=== PATIENT | male | born 1945 | race Caucasian/White ===

== ENCOUNTER 2017-08-26 20:33 | Inpatient (IN) | payer OTHER ==
[~2017-08-26] VITALS: Ht 167.6 cm; Wt 95.5 kg
[~2017-08-26 20:33] MED LIST: ASPIRIN325 MG PO; BYSTOLIC5 MG PO; CRESTOR10 MG PO; HYDROCODON-ACE1 EAC7 PO; LEVAQUIN500 MG PO; LEVAQUIN750 MG PO; METFORMIN HCL500 M1 PO; METFORMIN HCL500 MG PO; PREDNISONE20 MG PO; REGLAN10 MG PO; ST. JOSEPH ASPI81 MG PO; TRILIPIX135 MG PO; VENTOLIN HFA18 GM IH; ZITHROMAX Z-PA250 MG PO
[2017-08-26 21:04] LABS: HEMATOCRIT 43.2 % (38.0-50.0); HEMOGLOBIN 14.6 G/DL (12.5-16.6); MCH 33.6 PG (29.0-34.0); MCHC 33.8 G/DL (30.0-36.0); MCV 99.3 FL (86-99); PLATELET COUNT 179 K/uL (156-360); RBC DIS.WIDTH-SD 44.1 % (39-53); RED BLOOD COUNT 4.35 M/uL (4.00-5.50); WHITE BLOOD COUNT 6.1 K/uL (4.1-10.2)
[2017-08-26 21:14] LABS: ALBUMIN 4.3 g/dL (3.2-4.8); CHLORIDE 96 mEq/L (99-109); POTASSIUM 4.2 mEq/L (3.7-5.4); SODIUM 134 mEq/L (136-147)
[2017-08-26 21:17] LABS: GLUCOSE 153 mg/dL (70-99); TOTAL PROTEIN 7.2 g/dL (6.4-8.3)
[2017-08-26 21:19] LABS: TOTAL BILIRUBIN 1.3 mg/dL (0.0-1.0)
[2017-08-26 21:20] LABS: ALKALINE PHOSPHATASE 73 IU/L (3-129); CREATININE 1.1 mg/dL (0.6-1.3); GFR ESTIMATE (CALCULATED) > 59 mL/min/ (58.99-99999)
[2017-08-26 21:21] LABS: UREA NITROGEN (BUN) 14 mg/dL (9-23)
[2017-08-26 21:22] LABS: AST (GOT) 70 IU/L (2-34)
[2017-08-26 21:23] LABS: ALT (GPT) 48 IU/L (3-49)
[2017-08-26 22:49] LABS: LIPASE 54 U/L (1.0-51.0)
[2017-08-26 22:54] LABS: TROP-I INTERPRETATION NEGATIVE; TROPONIN-I < 0.01 ng/mL (0.0-0.30)
[2017-08-27] VITALS (7 sets, daily range): BP systolic 131–164; BP diastolic 60–72
[2017-08-27 02:03] LABS: APPEARANCE SL.HAZY ((CLEAR)); BILIRUBIN NEGATIVE; BLOOD NEGATIVE; COLOR AMBER ((YELLOW)); GLUCOSE (STRIP) >=500; KETONES 20; LEUKOCYTES NEGATIVE; NITRITE NEGATIVE; PROTEIN (STRIP) NEGATIVE; SPECIFIC GRAVITY 1.026 (1.000-1.030)
[2017-08-27 02:06] LABS: BACTERIA RARE /HPF; EPITHELIAL CELLS RARE /HPF; MUCUS TRACE /LPF; RED BLOOD CELLS 0-5 /HPF (0-5); UCUL ADDED? NO; WHITE BLOOD CELLS 0-5 /HPF (0-5)
[2017-08-27 06:13] LABS: BASOPHIL (%) 0.3 % (0-1); EOSINOPHIL (%) 0.3 % (0-5); HEMATOCRIT 42.7 % (38.0-50.0); IMMATURE GRANULOCYTE (%) 0.3 % (0.0-0.7); LYMPHOCYTE (%) 15.8 % (15-42); LYMPHOCYTE COUNT 1.3 K/uL (1.0-2.8); MCH 32.9 PG (29.0-34.0); MCHC 32.8 G/DL (30.0-36.0); MCV 100.5 FL (86-99); MONOCYTE (%) 7.5 % (3-12); MONOCYTE COUNT 0.6 K/uL (0-0.8); NEUTROPHIL (%) 75.8 % (45-76); PLATELET COUNT 154 K/uL (156-360); RBC DIS.WIDTH-CV 12.4 % (11.8-14.6); RBC DIS.WIDTH-SD 46.2 % (39-53); RED BLOOD COUNT 4.25 M/uL (4.00-5.50)
[2017-08-27 06:31] LABS: ALKALINE PHOSPHATASE 59 IU/L (3-129); ALT (GPT) 56 IU/L (3-49); AST (GOT) 87 IU/L (2-34); CHLORIDE 97 MEQ/L (99-109); GFR ESTIMATE (CALCULATED) > 59 mL/min/ (58.99-99999); GLUCOSE 156 mg/dL (70-99); SODIUM 134 MEQ/L (136-147); TOTAL BILIRUBIN 2.3 MG/DL (0.0-1.0); TOTAL PROTEIN 6.5 G/DL (6.4-8.3); UREA NITROGEN (BUN) 16 mg/dL (9-23)
[2017-08-27 06:32] LABS: POTASSIUM 5.1 MEQ/L (3.7-5.4)
[2017-08-27] MEDS ORDERED: GLIPIZIDE5 MG PO (09:28)
[2017-08-27] MEDS ORDERED: ATIVAN0.5 MG PO (09:28)
[2017-08-28 05:32] LABS: BASOPHIL (%) 0.3 % (0-1); EOSINOPHIL (%) 1.6 % (0-5); EOSINOPHIL COUNT 0.1 K/uL (0-0.3); HEMATOCRIT 39.5 % (38.0-50.0); HEMOGLOBIN 12.9 G/DL (12.5-16.6); IMMATURE GRANULOCYTE (%) 0.3 % (0.0-0.7); LYMPHOCYTE (%) 17.3 % (15-42); LYMPHOCYTE COUNT 1.1 K/uL (1.0-2.8); MCH 32.5 PG (29.0-34.0); MCHC 32.7 G/DL (30.0-36.0); MCV 99.5 FL (86-99); MONOCYTE (%) 9.8 % (3-12); MONOCYTE COUNT 0.6 K/uL (0-0.8); NEUTROPHIL (%) 70.7 % (45-76); NEUTROPHIL COUNT 4.5 K/uL (1.8-6.4); PLATELET COUNT 139 K/uL (156-360); RBC DIS.WIDTH-CV 12.5 % (11.8-14.6); RBC DIS.WIDTH-SD 45.7 % (39-53); RED BLOOD COUNT 3.97 M/uL (4.00-5.50); WHITE BLOOD COUNT 6.3 K/uL (4.1-10.2)
[2017-08-28 06:00] LABS: ALBUMIN 3.4 G/DL (3.2-4.8); ALKALINE PHOSPHATASE 58 IU/L (3-129); ALT (GPT) 78 IU/L (3-49); AST (GOT) 100 IU/L (2-34); CHLORIDE 104 MEQ/L (99-109); CREATININE 0.9 MG/DL (0.6-1.3); GFR ESTIMATE (CALCULATED) > 59 mL/min/ (58.99-99999); GLUCOSE 148 mg/dL (70-99); POTASSIUM 3.9 MEQ/L (3.7-5.4); SODIUM 138 MEQ/L (136-147); TOTAL PROTEIN 5.5 G/DL (6.4-8.3); UREA NITROGEN (BUN) 11 mg/dL (9-23)
[2017-08-28 07:16] VITALS: BP 148/69
[2017-08-28 10:27] LABS: HEMOGLOBIN A1c (GLYCOHEMOGLOB) 7.2 % (Below 5.7)
[2017-08-28 15:45] VITALS: BP 183/74
[2017-08-28 16:22] VITALS: BP 142/58
[2017-08-28 20:27] VITALS: BP 132/59
[2017-08-28 23:12] VITALS: BP 143/67
[2017-08-29 05:13] LABS: HEMATOCRIT 37.5 % (38.0-50.0); HEMOGLOBIN 12.5 G/DL (12.5-16.6); MCH 33.5 PG (29.0-34.0); MCHC 33.3 G/DL (30.0-36.0); MCV 100.5 FL (86-99); PLATELET COUNT 122 K/uL (156-360); RBC DIS.WIDTH-CV 12.5 % (11.8-14.6); RED BLOOD COUNT 3.73 M/uL (4.00-5.50); WHITE BLOOD COUNT 4.2 K/uL (4.1-10.2)
[2017-08-29 05:36] LABS: ALBUMIN 3.3 G/DL (3.2-4.8); ALKALINE PHOSPHATASE 61 IU/L (3-129); ALT (GPT) 88 IU/L (3-49); AST (GOT) 105 IU/L (2-34); CHLORIDE 107 MEQ/L (99-109); CREATININE 0.9 MG/DL (0.6-1.3); GFR ESTIMATE (CALCULATED) > 59 mL/min/ (58.99-99999); GLUCOSE 135 mg/dL (70-99); POTASSIUM 4.1 MEQ/L (3.7-5.4); SODIUM 140 MEQ/L (136-147); TOTAL BILIRUBIN 5.2 MG/DL (0.0-1.0); TOTAL PROTEIN 5.2 G/DL (6.4-8.3); UREA NITROGEN (BUN) 9 mg/dL (9-23)
[2017-08-29 07:21] VITALS: BP 134/64
[2017-08-29 12:36] VITALS: BP 168/75
[2017-08-29 19:30] VITALS: BP 162/93
[2017-08-29 23:05] VITALS: BP 166/67
[2017-08-30 00:28] LABS: HEMATOCRIT 38.1 % (38.0-50.0); HEMOGLOBIN 12.9 G/DL (12.5-16.6); MCH 33.4 PG (29.0-34.0); MCHC 33.9 G/DL (30.0-36.0); MCV 98.7 FL (86-99); PLATELET COUNT 117 K/uL (156-360); RBC DIS.WIDTH-CV 12.4 % (11.8-14.6); RBC DIS.WIDTH-SD 44.8 % (39-53); RED BLOOD COUNT 3.86 M/uL (4.00-5.50); WHITE BLOOD COUNT 4.3 K/uL (4.1-10.2)
[2017-08-30 00:37] LABS: ALBUMIN 3.6 g/dL (3.2-4.8); CHLORIDE 105 mEq/L (99-109); POTASSIUM 3.9 mEq/L (3.7-5.4); SODIUM 138 mEq/L (136-147)
[2017-08-30 00:39] LABS: GLUCOSE 182 mg/dL (70-99)
[2017-08-30 00:43] LABS: ALKALINE PHOSPHATASE 93 IU/L (3-129); CREATININE 0.8 mg/dL (0.6-1.3); GFR ESTIMATE (CALCULATED) > 59 mL/min/ (58.99-99999); TOTAL BILIRUBIN 4.9 mg/dL (0.0-1.0); TOTAL PROTEIN 5.9 g/dL (6.4-8.3)
[2017-08-30 00:44] LABS: UREA NITROGEN (BUN) 9 mg/dL (9-23)
[2017-08-30 00:48] LABS: ALT (GPT) 133 IU/L (3-49); AST (GOT) 144 IU/L (2-34)
[2017-08-30 02:10] LABS: LIPASE 50 U/L (1.0-51.0)
[2017-08-30 05:29] LABS: HEMATOCRIT 39.3 % (38.0-50.0); HEMOGLOBIN 12.9 G/DL (12.5-16.6); MCH 33.2 PG (29.0-34.0); MCHC 32.8 G/DL (30.0-36.0); PLATELET COUNT 122 K/uL (156-360); RBC DIS.WIDTH-CV 12.8 % (11.8-14.6); RBC DIS.WIDTH-SD 47.8 % (39-53); RED BLOOD COUNT 3.89 M/uL (4.00-5.50); WHITE BLOOD COUNT 4.1 K/uL (4.1-10.2)
[2017-08-30 05:48] LABS: ALBUMIN 3.5 G/DL (3.2-4.8); ALKALINE PHOSPHATASE 76 IU/L (3-129); ALT (GPT) 109 IU/L (3-49); AST (GOT) 116 IU/L (2-34); CHLORIDE 103 MEQ/L (99-109); CREATININE 0.9 MG/DL (0.6-1.3); GFR ESTIMATE (CALCULATED) > 59 mL/min/ (58.99-99999); GLUCOSE 158 mg/dL (70-99); POTASSIUM 4.2 MEQ/L (3.7-5.4); SODIUM 138 MEQ/L (136-147); TOTAL BILIRUBIN 4.3 MG/DL (0.0-1.0); TOTAL PROTEIN 5.6 G/DL (6.4-8.3); UREA NITROGEN (BUN) 9 mg/dL (9-23)
[2017-08-30 07:51] VITALS: BP 176/72
[2017-08-30] MEDS ORDERED: PANTOPRAZOLE SO40 MG PO (10:36)
[2017-08-30 11:42] VITALS: BP 154/70
[2017-08-30 15:04] VITALS: BP 150/68
[2017-08-30 19:20] VITALS: BP 157/63
[2017-08-31 00:11] VITALS: BP 156/70
[2017-08-31 05:27] LABS: HEMATOCRIT 38.8 % (38.0-50.0); HEMOGLOBIN 12.5 G/DL (12.5-16.6); MCH 32.4 PG (29.0-34.0); MCHC 32.2 G/DL (30.0-36.0); MCV 100.5 FL (86-99); PLATELET COUNT 124 K/uL (156-360); RBC DIS.WIDTH-CV 12.9 % (11.8-14.6); RBC DIS.WIDTH-SD 48.4 % (39-53); RED BLOOD COUNT 3.86 M/uL (4.00-5.50); WHITE BLOOD COUNT 3.8 K/uL (4.1-10.2)
[2017-08-31 05:53] LABS: ALBUMIN 3.3 G/DL (3.2-4.8); ALKALINE PHOSPHATASE 88 IU/L (3-129); ALT (GPT) 103 IU/L (3-49); AST (GOT) 97 IU/L (2-34); CHLORIDE 105 MEQ/L (99-109); CREATININE 0.8 MG/DL (0.6-1.3); GFR ESTIMATE (CALCULATED) > 59 mL/min/ (58.99-99999); GLUCOSE 145 mg/dL (70-99); POTASSIUM 4.1 MEQ/L (3.7-5.4); SODIUM 138 MEQ/L (136-147); TOTAL BILIRUBIN 4.3 MG/DL (0.0-1.0); TOTAL PROTEIN 5.3 G/DL (6.4-8.3); UREA NITROGEN (BUN) 8 mg/dL (9-23)
[2017-08-31 06:53] VITALS: BP 167/72
[2017-08-31 12:48] VITALS: BP 143/67
[2017-08-31 19:50] VITALS: BP 159/65
[2017-08-31 23:50] VITALS: BP 148/69
[2017-09-01 04:15] VITALS: BP 145/64
[2017-09-01 07:02] LABS: HEMATOCRIT 39.7 % (38.0-50.0); HEMOGLOBIN 12.6 G/DL (12.5-16.6); MCH 32.4 PG (29.0-34.0); MCHC 31.7 G/DL (30.0-36.0); MCV 102.1 FL (86-99); PLATELET COUNT 129 K/uL (156-360); RBC DIS.WIDTH-CV 13.5 % (11.8-14.6); RBC DIS.WIDTH-SD 51.5 % (39-53); RED BLOOD COUNT 3.89 M/uL (4.00-5.50)
[2017-09-01 07:27] LABS: ALBUMIN 3.1 G/DL (3.2-4.8); ALKALINE PHOSPHATASE 87 IU/L (3-129); ALT (GPT) 100 IU/L (3-49); AST (GOT) 112 IU/L (2-34); CHLORIDE 102 MEQ/L (99-109); CREATININE 0.8 MG/DL (0.6-1.3); GFR ESTIMATE (CALCULATED) > 59 mL/min/ (58.99-99999); GLUCOSE 181 mg/dL (70-99); MAGNESIUM 1.7 mg/dl (1.3-2.7); POTASSIUM 4.6 MEQ/L (3.7-5.4); SODIUM 135 MEQ/L (136-147); TOTAL BILIRUBIN 3.6 MG/DL (0.0-1.0); TOTAL PROTEIN 5.1 G/DL (6.4-8.3); UREA NITROGEN (BUN) 8 mg/dL (9-23)
[2017-09-01 07:34] VITALS: BP 147/66
[2017-09-01 11:25] VITALS: BP 143/65
[2017-09-01 15:46] VITALS: BP 145/64
[2017-09-01 19:15] VITALS: BP 144/94
[2017-09-01 22:40] VITALS: BP 173/76
[2017-09-02 03:40] VITALS: BP 160/70
[2017-09-02 08:02] VITALS: BP 138/89
[2017-09-02 10:53] LABS: BASOPHIL (%) 0.5 % (0-1); EOSINOPHIL (%) 2.4 % (0-5); EOSINOPHIL COUNT 0.2 K/uL (0-0.3); HEMATOCRIT 40.7 % (38.0-50.0); HEMOGLOBIN 13.3 G/DL (12.5-16.6); IMMATURE GRANULOCYTE (%) 0.2 % (0.0-0.7); LYMPHOCYTE (%) 12.6 % (15-42); LYMPHOCYTE COUNT 0.8 K/uL (1.0-2.8); MCH 33.6 PG (29.0-34.0); MCHC 32.7 G/DL (30.0-36.0); MCV 102.8 FL (86-99); MONOCYTE (%) 7.6 % (3-12); MONOCYTE COUNT 0.5 K/uL (0-0.8); NEUTROPHIL (%) 76.7 % (45-76); NEUTROPHIL COUNT 4.8 K/uL (1.8-6.4); PLATELET COUNT 124 K/uL (156-360); RBC DIS.WIDTH-CV 13.4 % (11.8-14.6); RBC DIS.WIDTH-SD 51.2 % (39-53); RED BLOOD COUNT 3.96 M/uL (4.00-5.50); WHITE BLOOD COUNT 6.3 K/uL (4.1-10.2)
[2017-09-02 11:21] LABS: ALKALINE PHOSPHATASE 94 IU/L (3-129); ALT (GPT) 78 IU/L (3-49); AST (GOT) 71 IU/L (2-34); CHLORIDE 98 MEQ/L (99-109); CREATININE 0.8 MG/DL (0.6-1.3); GFR ESTIMATE (CALCULATED) > 59 mL/min/ (58.99-99999); GLUCOSE 224 mg/dL (70-99); MAGNESIUM 1.8 mg/dl (1.3-2.7); POTASSIUM 4.2 MEQ/L (3.7-5.4); SODIUM 133 MEQ/L (136-147); TOTAL BILIRUBIN 4.2 MG/DL (0.0-1.0); TOTAL PROTEIN 5.2 G/DL (6.4-8.3); UREA NITROGEN (BUN) 10 mg/dL (9-23)
[2017-09-02 15:54] VITALS: BP 160/70
[2017-09-03 00:01] VITALS: BP 155/66
[2017-09-03 06:16] LABS: BASOPHIL (%) 0.5 % (0-1); EOSINOPHIL (%) 3.4 % (0-5); EOSINOPHIL COUNT 0.2 K/uL (0-0.3); HEMOGLOBIN 12.9 G/DL (12.5-16.6); IMMATURE GRANULOCYTE (%) 0.5 % (0.0-0.7); LYMPHOCYTE (%) 13.5 % (15-42); LYMPHOCYTE COUNT 0.9 K/uL (1.0-2.8); MCH 32.6 PG (29.0-34.0); MCHC 32.3 G/DL (30.0-36.0); MONOCYTE (%) 9.4 % (3-12); MONOCYTE COUNT 0.6 K/uL (0-0.8); NEUTROPHIL (%) 72.7 % (45-76); NEUTROPHIL COUNT 4.7 K/uL (1.8-6.4); RBC DIS.WIDTH-CV 13.4 % (11.8-14.6); RBC DIS.WIDTH-SD 50.4 % (39-53); RED BLOOD COUNT 3.96 M/uL (4.00-5.50); WHITE BLOOD COUNT 6.5 K/uL (4.1-10.2)
[2017-09-03 06:31] LABS: PLATELET COUNT 167 K/uL (156-360)
[2017-09-03 06:39] LABS: ALBUMIN 2.9 G/DL (3.2-4.8); ALKALINE PHOSPHATASE 94 IU/L (3-129); ALT (GPT) 66 IU/L (3-49); AST (GOT) 58 IU/L (2-34); CHLORIDE 99 MEQ/L (99-109); CREATININE 0.7 MG/DL (0.6-1.3); GFR ESTIMATE (CALCULATED) > 59 mL/min/ (58.99-99999); GLUCOSE 166 mg/dL (70-99); IMMUNOGLOBULIN G 666 MG/DL (650-1600); IMMUNOGLOBULIN M 33 MG/DL (50-300); POTASSIUM 3.9 MEQ/L (3.7-5.4); SODIUM 136 MEQ/L (136-147); TOTAL BILIRUBIN 3.6 MG/DL (0.0-1.0); TOTAL PROTEIN 5.7 G/DL (6.4-8.3); UREA NITROGEN (BUN) 11 mg/dL (9-23)
[2017-09-03 06:40] LABS: DIRECT BILIRUBIN 2.4 mg/dL (0.0-0.3); IRON 53 MCG/DL (35-150); TRANSFERRIN (TIBC) 197.8 mg/dL (215-380); TRANSFERRIN SATUR. 27 % (20-55)
[2017-09-03 07:55] VITALS: BP 167/70
[2017-09-03 11:25] LABS: HEPATITIS B SURFACE ANTIGEN Nonreactive
[2017-09-03 11:26] LABS: HEPATITIS C ANTIBODY Nonreactive
[2017-09-03 11:28] LABS: ANTI-HEPATITIS A VIRUS (IGM) Nonreactive
[2017-09-03 11:29] LABS: ANTI-HEPATITIS B CORE (IGM) Nonreactive
[2017-09-03 15:32] VITALS: BP 138/64
[2017-09-03 23:26] VITALS: BP 162/83
[2017-09-04 06:14] LABS: BASOPHIL (%) 0.2 % (0-1); EOSINOPHIL (%) 4.8 % (0-5); EOSINOPHIL COUNT 0.2 K/uL (0-0.3); HEMATOCRIT 40.3 % (38.0-50.0); HEMOGLOBIN 13.2 G/DL (12.5-16.6); IMMATURE GRANULOCYTE (%) 0.2 % (0.0-0.7); LYMPHOCYTE (%) 26.8 % (15-42); LYMPHOCYTE COUNT 1.2 K/uL (1.0-2.8); MCH 32.4 PG (29.0-34.0); MCHC 32.8 G/DL (30.0-36.0); MONOCYTE (%) 10.8 % (3-12); MONOCYTE COUNT 0.5 K/uL (0-0.8); NEUTROPHIL (%) 57.2 % (45-76); NEUTROPHIL COUNT 2.6 K/uL (1.8-6.4); PLATELET COUNT 188 K/uL (156-360); RBC DIS.WIDTH-CV 13.5 % (11.8-14.6); RBC DIS.WIDTH-SD 49.2 % (39-53); RED BLOOD COUNT 4.07 M/uL (4.00-5.50); WHITE BLOOD COUNT 4.6 K/uL (4.1-10.2)
[2017-09-04 06:50] LABS: ALBUMIN 2.8 G/DL (3.2-4.8); ALT (GPT) 55 IU/L (3-49); AST (GOT) 51 IU/L (2-34); CHLORIDE 99 MEQ/L (99-109); CREATININE 0.7 MG/DL (0.6-1.3); GFR ESTIMATE (CALCULATED) > 59 mL/min/ (58.99-99999); GLUCOSE 180 mg/dL (70-99); SODIUM 136 MEQ/L (136-147); TOTAL BILIRUBIN 3.2 MG/DL (0.0-1.0); UREA NITROGEN (BUN) 14 mg/dL (9-23)
[2017-09-04 07:00] LABS: ALKALINE PHOSPHATASE 123 IU/L (3-129)
[2017-09-04 08:29] VITALS: BP 137/63
[2017-09-04 15:42] VITALS: BP 158/76
[2017-09-04 23:32] LABS: ANTI-SMOOTH MUSCLE (Actin)+ <20 U (<20)
[2017-09-05 00:17] VITALS: BP 137/77
[2017-09-05 06:58] LABS: HEMATOCRIT 40.4 % (38.0-50.0); HEMOGLOBIN 13.2 G/DL (12.5-16.6); MCH 32.8 PG (29.0-34.0); MCHC 32.7 G/DL (30.0-36.0); MCV 100.2 FL (86-99); PLATELET COUNT 202 K/uL (156-360); RBC DIS.WIDTH-CV 13.8 % (11.8-14.6); RED BLOOD COUNT 4.03 M/uL (4.00-5.50); WHITE BLOOD COUNT 4.5 K/uL (4.1-10.2)
[2017-09-05 07:23] LABS: ALBUMIN 2.9 G/DL (3.2-4.8); ALT (GPT) 58 IU/L (3-49); AST (GOT) 62 IU/L (2-34); CHLORIDE 99 MEQ/L (99-109); CREATININE 0.8 MG/DL (0.6-1.3); GFR ESTIMATE (CALCULATED) > 59 mL/min/ (58.99-99999); GLUCOSE 187 mg/dL (70-99); POTASSIUM 4.4 MEQ/L (3.7-5.4); SODIUM 136 MEQ/L (136-147); TOTAL PROTEIN 5.3 G/DL (6.4-8.3); UREA NITROGEN (BUN) 15 mg/dL (9-23)
[2017-09-05 07:25] LABS: ALKALINE PHOSPHATASE 159 IU/L (3-129); TOTAL BILIRUBIN 2.3 MG/DL (0.0-1.0)
[2017-09-05 07:30] VITALS: BP 142/66
[2017-09-05 11:18] VITALS: BP 158/66
[2017-09-05 16:20] VITALS: BP 175/76
[2017-09-05] MEDS ORDERED: GUAIFENESI100 MG/5 M PO (16:28)
[2017-09-05] MEDS ORDERED: DOCUSATE SODIU100 MG PO (16:28)
[2017-09-05] MEDS ORDERED: HYDROCODON-ACE1 EAC7 PO (16:33)
[2017-09-05 23:26] LABS: MITOCHONDRIAL (M2) ANTIBODIES+ <=20.0 U (<=20.0)
== END 2017-09-05 18:15 | disposition home health service (06) | DRG 419 ==
LOC: DELPENDDIS → EME 20:33 → 5WEST 08-27 03:36 → EDOF 08-27 03:36 → ENRESERV 08-27 03:38 → 5WEST 08-27 04:09 → ENPENDDIS 08-30 10:58 → ENRESERV 08-31 11:30 → 2EAST 08-31 12:43
PROVIDERS: Hospitalist; Internal Medicine; Internal Medicine Gastroenterology; Nurse Practitioner Adult Health; Physician Assistant; Surgery; Thoracic Surgery (Cardiothoracic Vascular Surgery)
DX: K80.65 Calculus of gallbladder and bile duct with chronic cholecystitis with obstruction (principal); K82.4 Cholesterolosis of gallbladder; K42.9 Umbilical hernia without obstruction or gangrene; K43.9 Ventral hernia without obstruction or gangrene; K70.31 Alcoholic cirrhosis of liver with ascites; J43.9 Emphysema, unspecified; K26.9 Duodenal ulcer, unspecified as acute or chronic, without hemorrhage or perforation; I10 Essential (primary) hypertension; E11.9 Type 2 diabetes mellitus without complications; E78.5 Hyperlipidemia, unspecified; I25.10 Atherosclerotic heart disease of native coronary artery without angina pectoris; R94.5 Abnormal results of liver function studies; F10.10 Alcohol abuse, uncomplicated; K57.30 Diverticulosis of large intestine without perforation or abscess without bleeding; K59.00 Constipation, unspecified; E66.9 Obesity, unspecified; Z68.33 Body mass index [BMI] 33.0-33.9, adult; Z79.82 Long term (current) use of aspirin; Z79.84 Long term (current) use of oral hypoglycemic drugs; Z87.891 Personal history of nicotine dependence; Z95.1 Presence of aortocoronary bypass graft
CPT/HCPCS: 70140; 71045; 74176; 74177; 74328; 76705; 80053; 80074; 81003; 82248; 82784; 82948; 83036; 83516 90; 83540; 83690; 83735; 84466; 84484; 85025; 85027; 86038; 86256 90; 87070; 87081; 87205; 87449; 88304; 93005; 94799; 99281; 99285; C1757; C1769; J0330; J0461; J0690; J1170; J1644; J1815; J2270; J2405; J2710; J3010; J7030; J7120; S0028; S0074